=== PATIENT | female | born 1990 | race African-American/Black ===

== ENCOUNTER 2016-12-29 09:55 | Inpatient (IN) | payer OTHER ==
[2016-12-29] VITALS (48 sets, daily range): BP systolic 107–154; BP diastolic 43–99; PULSE 67–113; TEMP 97.8–98.4
[~2016-12-29] VITALS: Ht 165.1 cm; Wt 94.5 kg
[2016-12-29] MEDS ORDERED: PROFERRIN ES12 MG PO (10:44)
[2016-12-29] MEDS ORDERED: PRENATAL MVI (10:44)
[2016-12-29 11:07] LABS: BASO % 0.2 % (0.0-2.0); EOS # 0.1 (0.0-0.7); EOS % 1.6 % (0-4.0); GRAN # 6.2 (1.4-6.5); GRAN % 69.6 % (42.2-75.2); HEMATOCRIT 38.1 % (37.0-47.0); HEMOGLOBIN 12.6 g/dl (12.5-16.0); LYMPH # 1.8 (1.2-3.4); LYMPH % 20.7 % (20.0-51.0); MEAN CELL VOLUME 84 fl (80.0-100.0); MEAN CORPUSCULAR HEMOGLOBIN 28 pg (27.0-31.0); MEAN CORPUSCULAR HGB CONC 33 g/dl (33.0-37.0); MEAN PLATELET VOLUME 10.6 fl (7.4-10.4); MONO # 0.6 (0.1-0.6); MONO % 6.9 % (1.7-9.3); PLATELET COUNT 218 K/mm3 (130-400); RED BLOOD COUNT 4.56 M/mm3 (4.10-5.30); REDCELL DISTRIBUTION WIDTH-CV 15.7 % (11.5-14.5); WHITE BLOOD COUNT 8.9 K/mm3 (4.8-10.8)
[2016-12-29] MEDS ORDERED: MOTRIN 800800 MG/TAB PO (13:45)
[2016-12-29] MEDS ORDERED: PERCOCET 325 MG1 TA2 PO (13:45)
[2016-12-30 03:30] VITALS: BP 119/56; PULSE 96; TEMP 97.7
[2016-12-30 06:59] LABS: HEMATOCRIT 31.5 % (37.0-47.0); HEMOGLOBIN 10.4 g/dl (12.5-16.0)
[2016-12-30 08:00] VITALS: BP 116/61; PULSE 100; TEMP 97.3
[2016-12-30 16:10] VITALS: BP 116/70; PULSE 103; TEMP 98.1
[2016-12-30 20:30] VITALS: BP 126/71; PULSE 111; TEMP 98.1
[2016-12-31 07:45] VITALS: BP 141/81; PULSE 105; TEMP 98.5
== END 2016-12-31 14:55 | disposition home or self-care (01) | DRG 766 ==
LOC: LDRO 09:55 → LDR 10:00 → OB 10:00
PROVIDERS: Obstetrics & Gynecology
PROC: 10D00Z1 Extraction of Products of Conception, Low, Open Approach (ICD-10-PCS; principal; 2016-12-29)
DX: O62.0 Primary inadequate contractions (principal); O34.211 Maternal care for low transverse scar from previous cesarean delivery; N85.8 Other specified noninflammatory disorders of uterus; O99.284 Endocrine, nutritional and metabolic diseases complicating childbirth; E05.90 Thyrotoxicosis, unspecified without thyrotoxic crisis or storm; Z3A.39 39 weeks gestation of pregnancy; Z37.0 Single live birth
CPT/HCPCS: J0690; J1885; J2270; J2370; J2405; J2550; J2590; J7120